=== PATIENT | female | born 2005 | race African-American/Black ===

== ENCOUNTER 2024-10-25 21:46 | Emergency (ER) | payer OTHER ==
[2024-10-25] MEDS: Ketorolac 60 MG/2 ML SDV IM ONE (23:03)
[2024-10-25] MEDS: Acetaminophen 325 MG Tab PO ONE (23:03)
== END 2024-10-25 22:45 | disposition home or self-care (01) ==
LOC: JD.ED 21:46
DX: S90.121A Contusion of right lesser toe(s) without damage to nail, initial encounter (principal); W22.8XXA Striking against or struck by other objects, initial encounter
CPT/HCPCS: 73630; 99283; A9270